=== PATIENT | male | born 1950 | race Caucasian/White ===

== ENCOUNTER 2022-09-25 16:28 | Inpatient (IN) | payer OTHER, MEDICAID ==
[~2022-09-25] VITALS: Ht 172.7 cm; Wt 72.6 kg
[2022-09-25 16:39] VITALS: BP_SYST 109
[2022-09-25] MEDS ORDERED: NS 1000 ML IV.SOLN IV ONE (16:45)
--- NOTE | 2022-09-25 17:00 | NUR ---
ASSUMED CARE, PATIENT BIBA WITH C/O ABD PAIN THAT STARTED YESTERDAY. PER EMS REPORT PATIENT WAS RECENTLY DX WITH UTI AND A JONES WAS PLACED HOWEVER DATE OF PLACEMENT IS WN. PATIENT NOTED TO BE AOX3 GCS 14. 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 IT IS ALSO NOTED THAT HE HAS A RIGHT SIDED SCAR ON THE RIGHT SIDE OF HIS HEAD.
--- NOTE | 2022-09-25 17:15 | NUR ---
PATIENT WAS PLACED IN ROOM 6 ON TELE MONITOR RESTING COMFORTABLY MD AT BEDSIDE FOR ASSESSMENT
[2022-09-25 17:21] LABS: HEMOGLOBIN 12.1 g/dL (14.0-18.0); WHITE BLOOD COUNT (AUTO) 3.7 K/uL (4.8-10.8)
[2022-09-25 17:22] LABS: ANION GAP 8 (5-15); CHLORIDE 102 mmol/L (98-107); CREATININE 1.13 mg/dL (0.55-1.30); GLUCOSE 123 mg/dL (70-99); UREA NITROGEN, BLOOD 21 mg/dL (8-21)
[2022-09-25 17:27] LABS: HEMATOCRIT 36.6 % (36-54); MEAN CORPUSCULAR HEMOGLOBIN 29 pg (27-31); MEAN CORPUSCULAR HGB CONC 33 % (32-36); MEAN CORPUSCULAR VOLUME 87 fL (79.0-98.0); PLATELET COUNT (AUTO) 224 K/uL (130-430); RED BLOOD CELL COUNT(AUTO) 4.21 MIL/uL (4.2-6.2); RED CELL DISTRIBUTION WIDTH 21.9 % (9.0-15.0)
[2022-09-25 17:30] LABS: BILIRUBIN,URINE NEGATIVE (NEGATIVE); BLOOD, URINE 3+ (NEGATIVE); COLOR,URINE YELLOW (YELLOW); GLUCOSE,URINE NEGATIVE (NEGATIVE); KETONES,URINE NEGATIVE (NEGATIVE); LEUKOCYTE ESTERASE ,URINE 3+ (NEGATIVE); NITRITE, URINE NEGATIVE (NEGATIVE); PROTEIN URINE TRACE (NEGATIVE); UROBILINOGEN,URINE 0.2 (0.2-1.0)
[2022-09-25 17:31] LABS: ALANINE AMINOTRANSFERASE 26 U/L (12-78); ALBUMIN 3.1 g/dL (3.4-4.8); ASPARTATE AMINOTRANSFERASE 32 U/L (10-37); TOTAL BILIRUBIN 0.7 mg/dL (0.0-1.0)
[2022-09-25 17:36] LABS: GFR AFRICAN AMERICAN 83 mL/min (>90)
[2022-09-25 17:42] LABS: CLARITY/URINE HAZY (CLEAR)
[2022-09-25 17:54] LABS: BACTERIA,URINE MODERATE /HPF (None Seen); WBC,URINE 20-50 /HPF (0-3)
[2022-09-25 18:06] LABS: EOSINOPHILS % (MANUAL) 2 % (0-7); LYMPHOCYTES % (MANUAL) 30 % (20-46); MONOCYTES % (MANUAL) 4 % (0-11)
[2022-09-25] MEDS ORDERED: NOR10 PO (18:10)
[2022-09-25] MEDS ORDERED: FENO48TA8 PO (18:10)
[2022-09-25] MEDS ORDERED: RIVA20TA PO (18:10)
[2022-09-25] MEDS ORDERED: TRAM50TA2 PO (18:10)
[2022-09-25] MEDS ORDERED: HYT1 PO (18:10)
[2022-09-25] MEDS ORDERED: TRAZ-250 PO (18:10)
[2022-09-25] MEDS ORDERED: OMEP20CA15 PO (18:10)
[2022-09-25] MEDS ORDERED: METF-379 PO (18:10)
[2022-09-25] MEDS ORDERED: TAMS-11 PO (18:10)
[2022-09-25] MEDS ORDERED: CYM30 PO (18:10)
[2022-09-25] MEDS ORDERED: SYN50 PO (18:10)
[2022-09-25] MEDS ORDERED: POTA8TAB66 PO (18:10)
[2022-09-25] MEDS ORDERED: LIP40 PO (18:10)
--- NOTE | 2022-09-25 18:10 | NUR ---
FAMILY INFORMATION DAUGHTER LAURO [phone] SON BOAZ WE[place]INGTON [phone]
[2022-09-25] MEDS ORDERED: cefTRIAXone 1 GM in D5W 50 ML IV ONE (18:30)
--- NOTE | 2022-09-25 19:25 | NUR ---
Received report at this time. Pt presently on monitor. Male family member present in room at this time.
--- NOTE | 2022-09-25 20:57 | NUR ---
Admit bed requested Patient will be admitted to care of Romel Cruz Admitted to [facility] unit. Diagnosis UTI Inpatient (Yes or No) YES Observation (Yes or No) NO Orientation concerns or request close to nursing station (Yes or No) NO Covid Status PENDING On vent or bipap NO Isolation requirements NO Needs a sitter NO From Home (Yes or if No enter name of facility) YES Requires Dialysis (Yes or No) NO Med Rec Completed (Yes of No) PENDING
[2022-09-25] MEDS ORDERED: cefTRIAXone 1 GM IVPB PREMIX 50 ML IV ONE (21:01)
[2022-09-25] MEDS ORDERED: NALOXONE HCL 0.4 MG/ML AMP (NARCAN) IVP PRN ×2 (22:15)
[2022-09-25] MEDS ORDERED: MUPIROCIN 2% TOPICAL OINTMENT 22 GM NS PRN (22:15)
[2022-09-25] MEDS ORDERED: POTASSIUM CHLORIDE 20 MEQ TAB.PRT.SR PO PRN (22:15)
[2022-09-25] MEDS ORDERED: ONDANSETRON HCL 4 MG/2 ML VIAL IVP PRN (22:15)
[2022-09-25] MEDS ORDERED: LORazepam 2 MG/ML VIAL IVP PRN (22:15)
[2022-09-25] MEDS ORDERED: ZOLPIDEM TARTRATE 5 MG TABLET PO PRN (22:15)
[2022-09-25] MEDS ORDERED: DOCUSATE SODIUM 100 MG CAPSULE PO PRN (22:15)
--- NOTE | 2022-09-26 00:08 | NUR ---
Patient will be admitted to care of Dr. Bridges. Admitted to med/surg unit. Will go to room 103 B. Belongings list completed. Complete and up to date summary report printed. SBAR report given at bedside to MONIKA Meyer with opportunity for questions.
[2022-09-26 00:30] VITALS: BP_SYST 142
[2022-09-26] MEDS: NACL 0.9% 1,000 ML IV SCH ×2 (01:04→14:55)
[2022-09-26] MEDS: LEVOTHYROXINE SODIUM 0.05 MG TABLET PO SCH (06:36)
[2022-09-26 07:20] LABS: EOSINOPHILS # (AUTO) 0.1 K/uL (0.0-0.4); EOSINOPHILS % (AUTO) 1.3 % (0.0-4.0); HEMATOCRIT 33.1 % (36-54); HEMOGLOBIN 11.2 g/dL (14.0-18.0); LYMPHOCYTES # (AUTO) 1.3 K/uL (1.0-5.5); LYMPHOCYTES % (AUTO) 29.1 % (20.5-51.5); MEAN CORPUSCULAR HEMOGLOBIN 29 pg (27-31); MEAN CORPUSCULAR HGB CONC 34 % (32-36); MEAN CORPUSCULAR VOLUME 87 fL (79.0-98.0); MONOCYTES # (AUTO) 0.4 K/uL (0.0-1.0); MONOCYTES % (AUTO) 8.6 % (1.7-9.3); NEUTROPHILS # (AUTO) 2.7 K/uL (1.8-7.7); PLATELET COUNT (AUTO) 205 K/uL (130-430); RED CELL DISTRIBUTION WIDTH 21.9 % (9.0-15.0); WHITE BLOOD COUNT (AUTO) 4.5 K/uL (4.8-10.8)
[2022-09-26 08:27] VITALS: BP_SYST 110
[2022-09-26 08:31] LABS: CALCIUM 8.3 mg/dL (8.4-11.0); CREATININE 0.84 mg/dL (0.55-1.30)
[2022-09-26] MEDS: metFORMIN HCL 500 MG TABLET PO SCH ×2 (08:46→17:30)
[2022-09-26] MEDS: MAGNESIUM SULFATE 50 ML IV PRN (08:47)
[2022-09-26] MEDS: DULoxetine HCL 30 MG CAPSULE.DR (CYMBALTA) PO SCH (08:47)
[2022-09-26] MEDS: TAMSULOSIN HCL 0.4 MG CAP PO SCH (08:47)
[2022-09-26 11:27] VITALS: BP_SYST 140
[2022-09-26 15:16] VITALS: BP_SYST 137
[2022-09-26] MEDS: RIVAROXABAN 10 MG TABLET PO SCH (17:31)
[2022-09-26] MEDS: MORPHINE 2 MG/ML INJ. SYRINGE IVP PRN (18:05)
[2022-09-26] MEDS: ATORVASTATIN 20 MG TABLET PO SCH ×2 (20:47→20:57)
[2022-09-26] MEDS: TERAZOSIN HCL 1 MG CAPSULE (HYTRIN) PO SCH (20:56)
[2022-09-26] MEDS: traZODone HCL 50 MG TABLET (DESYREL) PO SCH (20:57)
[2022-09-26] MEDS: cefTRIAXone 1 GM in D5W 50 ML IV SCH (20:58)
[2022-09-27 01:07] VITALS: BP_SYST 132
[2022-09-27] MEDS: INSULIN REGULAR, HUMAN 100 UNITS/ML, 3 ML VIAL (humuLIN R) SUBCUT PRN ×2 (05:49→07:53)
[2022-09-27 07:02] LABS: BASOPHILS % (AUTO) 0.8 % (0.0-2.0); EOSINOPHILS # (AUTO) 0.1 K/uL (0.0-0.4); EOSINOPHILS % (AUTO) 1.9 % (0.0-4.0); HEMATOCRIT 33.1 % (36-54); HEMOGLOBIN 11.3 g/dL (14.0-18.0); LYMPHOCYTES # (AUTO) 1.3 K/uL (1.0-5.5); LYMPHOCYTES % (AUTO) 27.4 % (20.5-51.5); MEAN CORPUSCULAR HEMOGLOBIN 30 pg (27-31); MEAN CORPUSCULAR HGB CONC 34 % (32-36); MEAN CORPUSCULAR VOLUME 87 fL (79.0-98.0); MONOCYTES # (AUTO) 0.4 K/uL (0.0-1.0); MONOCYTES % (AUTO) 7.8 % (1.7-9.3); NEUTROPHILS # (AUTO) 2.8 K/uL (1.8-7.7); PLATELET COUNT (AUTO) 196 K/uL (130-430); RED BLOOD CELL COUNT(AUTO) 3.81 MIL/uL (4.2-6.2); RED CELL DISTRIBUTION WIDTH 21.6 % (9.0-15.0); WHITE BLOOD COUNT (AUTO) 4.6 K/uL (4.8-10.8)
[2022-09-27] MEDS: LEVOTHYROXINE SODIUM 0.05 MG TABLET PO SCH (07:11)
[2022-09-27 07:25] LABS: CALCIUM 8.2 mg/dL (8.4-11.0); CREATININE 0.99 mg/dL (0.55-1.30)
[2022-09-27] MEDS: NACL 0.9% 1,000 ML IV SCH (07:35)
[2022-09-27 07:57] VITALS: BP_SYST 135
[2022-09-27 07:59] LABS: NEUTROPHILS % (AUTO) 62.1 % (40.0-70.0)
[2022-09-27] MEDS: MORPHINE 2 MG/ML INJ. SYRINGE IVP PRN ×3 (08:05→17:56)
--- NOTE | 2022-09-27 10:04 | NUR ---
Dietitian Recommendations * Continue [facility] diet * Ordered: beverly DENISE GS, MPH, RD Please refer to RD Assessment for further details. Thanks! Addendum: 09/27/22 at [address] Amended: Links added.
[2022-09-27] MEDS: metFORMIN HCL 500 MG TABLET PO SCH ×2 (10:22→17:55)
[2022-09-27] MEDS: TAMSULOSIN HCL 0.4 MG CAP PO SCH (10:22)
[2022-09-27] MEDS: DULoxetine HCL 30 MG CAPSULE.DR (CYMBALTA) PO SCH (10:22)
[2022-09-27] MEDS: MAGNESIUM SULFATE 50 ML IV PRN (10:23)
[2022-09-27 11:36] VITALS: BP_SYST 107
[2022-09-27 15:52] VITALS: BP_SYST 140
[2022-09-27] MEDS: RIVAROXABAN 10 MG TABLET PO SCH (17:55)
[2022-09-27 19:00] VITALS: BP_SYST 119
--- NOTE | 2022-09-27 19:30 | NUR ---
PATIENT RESTING IN BED COMFORTABLY. BED LOCKED AT LOWEST POSITION, SIDE RAILS UP, CALL LIGHT WITHIN REACH. PATIENT DENIES PAIN, SOB, OR DISCOMFORT AT THIS TIME. WILL CONTINUE TO MONITOR.
[2022-09-27] MEDS: ATORVASTATIN 20 MG TABLET PO SCH (21:22)
[2022-09-27] MEDS: cefTRIAXone 1 GM in D5W 50 ML IV SCH (21:22)
[2022-09-27] MEDS: traZODone HCL 50 MG TABLET (DESYREL) PO SCH (21:23)
[2022-09-27] MEDS: TERAZOSIN HCL 1 MG CAPSULE (HYTRIN) PO SCH (21:48)
[2022-09-28] VITALS (7 sets, daily range): BP systolic 117–123
[2022-09-28] MEDS: NACL 0.9% 1,000 ML IV SCH ×2 (00:15→09:42)
[2022-09-28] MEDS: LEVOTHYROXINE SODIUM 0.05 MG TABLET PO SCH (06:32)
[2022-09-28 06:51] LABS: CALCIUM 8.2 mg/dL (8.4-11.0); CREATININE 1.01 mg/dL (0.55-1.30)
--- NOTE | 2022-09-28 08:00 | NUR ---
Opening Notes Patient is Aox4. Patient is eating breakfast. No ss of distress noted. breathing is even and nonlabored, on room air. No SOB noted. patient denies pain. Vital signs obtained, as documented. Iv patent. IVF running. Patient has condom cath, Urias bag draining by gravity. Bed is locked, alarm on, and at lowest position. Call light within reach.
[2022-09-28 08:33] LABS: BASOPHILS % (AUTO) 1.1 % (0.0-2.0); EOSINOPHILS # (AUTO) 0.1 K/uL (0.0-0.4); EOSINOPHILS % (AUTO) 2.9 % (0.0-4.0); HEMOGLOBIN 11.2 g/dL (14.0-18.0); LYMPHOCYTES # (AUTO) 1.3 K/uL (1.0-5.5); LYMPHOCYTES % (AUTO) 29.5 % (20.5-51.5); MEAN CORPUSCULAR HEMOGLOBIN 30 pg (27-31); MEAN CORPUSCULAR HGB CONC 34 % (32-36); MEAN CORPUSCULAR VOLUME 88 fL (79.0-98.0); MONOCYTES # (AUTO) 0.4 K/uL (0.0-1.0); MONOCYTES % (AUTO) 8.2 % (1.7-9.3); NEUTROPHILS # (AUTO) 2.5 K/uL (1.8-7.7); NEUTROPHILS % (AUTO) 58.3 % (40.0-70.0); PLATELET COUNT (AUTO) 173 K/uL (130-430); RED BLOOD CELL COUNT(AUTO) 3.77 MIL/uL (4.2-6.2); RED CELL DISTRIBUTION WIDTH 21.6 % (9.0-15.0); WHITE BLOOD COUNT (AUTO) 4.4 K/uL (4.8-10.8)
[2022-09-28] MEDS ORDERED: SULF1TAB48 PO (09:33)
[2022-09-28] MEDS: DULoxetine HCL 30 MG CAPSULE.DR (CYMBALTA) PO SCH (09:42)
[2022-09-28] MEDS: metFORMIN HCL 500 MG TABLET PO SCH ×2 (09:42→17:33)
[2022-09-28] MEDS: TAMSULOSIN HCL 0.4 MG CAP PO SCH (09:42)
--- NOTE | 2022-09-28 12:02 | NUR ---
NOTES BLOOD GLUCOSE WAS 106 MG/DL. NO COVERAGE NEED. PATIENT IS EATING LUNCH. HOB ELEVATED. DENIES PAIN. NO DISTRESS NOTED. SAFETY PRECAUTIONS IN PLACE AND WEI LIGHT WITHIN REACH.
--- NOTE | 2022-09-28 15:50 | NUR ---
notes called son George Thompson at [phone] in regards of discharge. No answer. Left message.
--- NOTE | 2022-09-28 16:30 | NUR ---
notes Spoke to sister Hannah at [phone], sister states son George lives in [place] and is unable to answer calls due to his work. Sister states she is in [place] and will not be back until Saturday. Sister states she makes medical decisions. Franki Graham is his caregiver, sister unable to get a hold of him at [phone]. Called Franki at this number [phone], no answer left message.
--- NOTE | 2022-09-28 17:30 | NUR ---
Notes Called and spoke to Franki, caregiver. Caregiver made aware that patient has been discharged and needs to be picked up. Franki stated that he will not be able to supervisor opening and picking patient until evening after 8 pm. Called Hannah and informed her that Franki has been contacted and gave her an update of discharge plan. Sister request ambulance pick for patient due to the fact that patient has left sided weakness and states that a car ride is too painful for patient. Patient is wheelchair bound. Paged Dr Bridges for order. Spoke to Dr. Mo, consumer insight analyst, order received to be d/c via ambulance. Called Franki back to ensure he will be home for ambulance to be scheduled. Stated he will be home around 8/9 pm. Informed case supervisor Raegan.
[2022-09-28] MEDS: RIVAROXABAN 10 MG TABLET PO SCH (17:34)
--- NOTE | 2022-09-28 18:40 | NUR ---
Closing Note Patient is eating dinner. No ss of distress noted. Breathing is even and nonlabored, on room air. Denies pain. No SOB noted. Patient is stable. IV patent, IVF running. Ambulance in process of being arranged. Bed is locked, alarm on, and at lowest position. Call light within reach.
[2022-09-28] MEDS: ACETAMINOPHEN 325 MG TABLET PO PRN (18:56)
--- NOTE | 2022-09-28 19:11 | NUR ---
CALLED [facility]ARE [facility] WILL CALL US BACK WHEN THEY HAVE A CONFIRMED AMBULANCE INFORMED THEM THAT PT WILL BE READY AFTER 9PM
--- NOTE | 2022-09-28 19:13 | NUR ---
RESERVATION NUMBER FOR CALL THE CAR RESV#[phone]
--- NOTE | 2022-09-28 21:35 | NUR ---
FOLLOW UP TARIFF CLERK THE CAR CALLED AND THEY INFORMED ME THAT [facility] WILL BE [address] WITH [facility] CALLED AND INFORMED SISTER LAURO OF [facility] CALLED [facility] [employer] CHIEF AND ALSO INFORMED HIM THAT PT WILL BE PICKED UP HERE AT 2229 HE SAID HE IS THERE AND READY FOR PT TO COME
[2022-09-28] MEDS: traZODone HCL 50 MG TABLET (DESYREL) PO SCH (22:26)
[2022-09-28] MEDS: ATORVASTATIN 20 MG TABLET PO SCH (22:26)
[2022-09-28] MEDS: TERAZOSIN HCL 1 MG CAPSULE (HYTRIN) PO SCH (22:26)
[2022-09-28] MEDS: cefTRIAXone 1 GM in D5W 50 ML IV SCH (22:27)
--- NOTE | 2022-09-28 22:57 | NUR ---
[facility] THEY SAID A DELAY ABOUT ANOTHER HOUR CALLED [facility] [employer] MANA[facility] AND INFORMED HIM
[2022-09-29] MEDS: ACETAMINOPHEN 325 MG TABLET PO PRN (00:57)
== END 2022-09-29 01:45 | disposition home or self-care (01) | DRG 872 ==
LOC: SED 16:28 → SMU 20:52
PROVIDERS: ADMIT General Practice; ATTEND General Practice
DX: A41.9 Sepsis, unspecified organism (principal); N39.0 Urinary tract infection, site not specified; E44.1 Mild protein-calorie malnutrition; E87.6 Hypokalemia; I25.10 Atherosclerotic heart disease of native coronary artery without angina pectoris; N40.0 Benign prostatic hyperplasia without lower urinary tract symptoms; E78.5 Hyperlipidemia, unspecified; D72.819 Decreased white blood cell count, unspecified; I10 Essential (primary) hypertension; F32.A Depression, unspecified; Z20.822 Contact with and (suspected) exposure to COVID-19; G89.29 Other chronic pain; E11.51 Type 2 diabetes mellitus with diabetic peripheral angiopathy without gangrene; I48.91 Unspecified atrial fibrillation; Z86.73 Personal history of transient ischemic attack (TIA), and cerebral infarction without residual deficits; Z95.1 Presence of aortocoronary bypass graft; Z74.01 Bed confinement status; Z68.24 Body mass index [BMI] 24.0-24.9, adult
CPT/HCPCS: 36415; 71045; 80048; 80053; 81000; 83036; 83605; 83735; 84484; 85007; 85025; 85027; 87040; 87086; 93005; 96361; 96365; 96367; 99285; J0696; J2270; J3475; J7060